=== PATIENT | male | born 1990 | race Hispanic/Latino ===

== ENCOUNTER 2019-03-12 15:19 | Observation (INO) | payer BC ==
[2019-03-12] MEDS ORDERED: PIPER/TAZO/NS 3.375gm 3.375 GM/100 ML BAG ONE (15:36)
[2019-03-12] MEDS ORDERED: NA CHLORIDE 0.9% 1,000 ML ONE ×2 (15:36→17:10)
[2019-03-12 15:48] LABS: Absolute Lymphocytes (CBC) 2.2 K/uL (0.7-4.9); Basophils % 0.2 % (0-1.3); Hematocrit 46.5 % (39.6-49.0); Lymphocytes % 18.3 % (15.3-44.8); MPV 9.5 fL (7.6-11.3); RBC Red Blood Cell Count 5.42 M/uL (4.33-5.43)
[2019-03-12 16:07] LABS: ALT/SGPT 44 U/L (12-78); AST/SGOT 24 U/L (15-37); Albumin 4.5 g/dL (3.4-5.0); Alkaline Phosphatase 74 U/L (45-117); BUN Blood Urea Nitrogen 13 mg/dL (7-18); Bicarbonate 29 mmol/L (21-32); Bilirubin Total 0.6 mg/dL (0.2-1.0); Glucose Level 95 mg/dL (74-106); Potassium 3.7 mmol/L (3.5-5.1); Sodium Level 138 mmol/L (136-145)
--- NOTE | 2019-03-12 16:46 | ER ---
Nurse's Notes [facility] Name: Dieter Lara Age: 28 yrs Sex: Male : 1990 Arrival Date: 03/12/2019 Time: 15:20 Bed 28 Private MD: Diagnosis: Acute appendicitis Presentation: 03/12 15:20 Presenting complaint: Pt sent here for abnormal CT abd scan, positive for appendicitis. aa5 Pt reports mild RLQ pain that began yesterday. Denies pain at this time, denies N/V/D. 15:20 Transition of care: CT department. Onset of symptoms was March 12, 2019. Risk aa5 Assessment: Do you want to hurt yourself or someone else? Patient reports no desire to harm self or others. Initial Sepsis Screen: Does the patient meet any 2 criteria? No. Patient's initial sepsis screen is negative. Does the patient have a suspected source of infection? Yes: Other: Appendicitis. Care prior to arrival: IV initiated. 22 GA, in the left antecubital area. 15:20 Acuity: REMY 3 aa5 15:20 Method Of Arrival: Wheelchair aa5 Historical: - Allergies: 15:30 No Known Allergies; aa5 - PMHx: 15:30 None; aa5 - PSHx: 15:30 R arm; aa5 - Immunization history:: Adult Immunizations up to date. - Social history:: Smoking status: Patient uses tobacco products, 6 cigarettes a day . - Ebola Screening: : No symptoms or risks identified at this time. - Family history:: not pertinent. Screenin:30 Abuse screen: Denies threats or abuse. Nutritional screening: No deficits noted. aa5 Tuberculosis screening: No symptoms or risk factors identified. Fall Risk None identified. Assessment: 15:20 General: Appears comfortable, Behavior is calm, cooperative. Pain: Complains of pain in aa5 right lower quadrant Pain does not radiate. Pain currently is 0 out of 10 on a pain scale. Quality of pain is described as aching, Pain began 1 day ago. Is intermittent. Neuro: Level of Consciousness is awake, alert, obeys commands, Oriented to person, place, time, situation. Cardiovascular: Heart tones S1 S2 present Patient's skin is warm and dry. Rhythm is regular. Respiratory: Airway is patent Respiratory effort is even, unlabored, Respiratory pattern is regular, symmetrical. GI: Abdomen is round non-distended, Bowel sounds present X 4 quads. Abd is soft X 4 quads Abdomen is tender to palpation in right lower quadrant Patient currently denies diarrhea, nausea, vomiting. : No signs and/or symptoms were reported regarding the genitourinary system. EENT: No signs and/or symptoms were reported regarding the EENT system. Derm: Skin is pink, warm \T\ dry. Musculoskeletal: Range of motion: intact in all extremities. 16:20 Reassessment: Patient is alert, oriented x 3, equal unlabored respirations, skin aa5 warm/dry/pink. Patient denies pain at this time. 17:20 Reassessment: Patient is alert, oriented x 3, equal unlabored respirations, skin aa5 warm/dry/pink. Patient denies pain at this time. 17:48 Reassessment: Patient is alert, oriented x 3, equal unlabored respirations, skin aa5 warm/dry/pink. Vital Signs: 15:21 BP 132 / 89; Pulse 81; Resp 18 S; Temp 98.7(O); Pulse Ox 100% on R/A; Weight 94.35 kg aa5 (R); Height 5 ft. 7 in. (170.18 cm) (R); Pain 0/10; 16:20 BP 112 / 85; Pulse 75; Resp 16 S; Pulse Ox 99% on R/A; aa5 17:30 BP 113 / 68; Pulse 72; Resp 18 S; Temp 98.0(TE); Pulse Ox 99% on R/A; Pain 0/10; aa5 15:21 Body Mass Index 32.58 (94.35 kg, 170.18 cm) aa5 ED Course: 15:20 Patient arrived in ED. jonathan 15:20 Oh Mcdaniel MD is Attending Physician. jonathan 15:20 Arm band placed on Patient placed in an exam room, on a stretcher. aa5 15:20 Patient has correct armband on for positive identification. Placed in gown. Bed in low aa5 position. Call light in reach. Side rails up X2. Pulse ox on. NIBP on. 15:26 Ev Dixon, ISMAEL is Primary Nurse. aa5 15:29 Triage completed. aa5 15:40 Initial lab(s) drawn, by me, sent to lab. IV is intact, Changed dressing on left aa5 antecubital. 15:46 No provider procedures requiring assistance completed. aa5 16:45 Teo Luong MD is Hospitalizing Provider. [facility] 17:48 Patient admitted, IV remains in place. aa5 Administered Medications: 15:26 Not Given (Pt denies pain ): morphine 2 mg IVP once; (PAIN>8) RASS on ADMN: Combtv4, aa5 Very Agttd3, Agttd2, Rstlss1, AlertClm0, Drwsy-1, LtSdtn-2, ModSdtn-3, DpSdtn-4, UnArsble-5 x2 15:27 CANCELLED (Pt denies nausea ): Zofran 4 mg IVP once; over 2 minutes aa5 15:41 Drug: NS 0.9% 1000 ml Route: IV; Rate: 1 bolus; Site: left antecubital; aa5 16:41 Follow up: IV Status: Completed infusion; IV Intake: 1000ml aa5 15:41 Drug: Zosyn 3.375 grams Route: IVPB; Infused Over: 60 mins; Site: left antecubital; aa5 16:41 Follow up: Response: No adverse reaction; IV Status: Completed infusion aa5 17:00 Drug: NS 0.9% 1000 ml Route: IV; Rate: 125 ml/hr; Site: left antecubital; aa5 17:48 Follow up: IV Status: Infusion continued upon admission aa5 Intake: 16:41 IV: 1000ml; Total: 1000ml. aa5 Outcome: 16:46 Decision to Hospitalize by Provider. [facility] 17:48 Admitted to OR accompanied by nurse, via wheelchair, with chart. aa5 17:48 Condition: stable 17:48 Instructed on the need for admit, Demonstrated understanding of instructions. 17:50 Patient left the ED. aa5 Signatures: Oh Mcdaniel MD MD cha Calderon, Audri, RN RN aa5 Corrections: (The following items were deleted from the chart) 15:47 15:40 Inserted saline lock: 22 gauge in left antecubital area, using aseptic technique. aa5 Blood collected. aa5
--- NOTE | 2019-03-12 16:46 | EDPHYS ---
Physician Documentation [facility] Name: Dieter Lara Age: 28 yrs Sex: Male : 1990 Arrival Date: 03/12/2019 Time: 15:20 Bed 28 Private MD: ED Physician Oh Mcdaniel HPI: 03/12 16:42 This 28 yrs old Male presents to ER via Wheelchair with complaints of jonathan Appendicitis per CT scan. 16:42 The patient presents with abdominal pain right lower quadrant. Onset: The jonathan symptoms/episode began/occurred yesterday. The symptoms do not radiate. Associated signs and symptoms: none. The symptoms are described as crampy, steady. Modifying factors: The symptoms are alleviated by nothing, the symptoms are aggravated by movement, pressure. Severity of pain: At its worst the pain was mild moderate in the emergency department the pain is unchanged. The patient has not experienced similar symptoms in the past. Historical: - Allergies: 15:30 No Known Allergies; aa5 - PMHx: 15:30 None; aa5 - PSHx: 15:30 R arm; aa5 - Immunization history:: Adult Immunizations up to date. - Social history:: Smoking status: Patient uses tobacco products, 6 cigarettes a day . - Ebola Screening: : No symptoms or risks identified at this time. - Family history:: not pertinent. ROS: 16:42 Constitutional: Negative for fever, chills, and weight loss, Eyes: Negative for injury, jonathan pain, redness, and discharge, ENT: Negative for injury, pain, and discharge, Neck: Negative for injury, pain, and swelling, Cardiovascular: Negative for chest pain, palpitations, and edema, Respiratory: Negative for shortness of breath, cough, wheezing, and pleuritic chest pain, : Negative for injury, bleeding, discharge, and swelling, MS/Extremity: Negative for injury and deformity, Skin: Negative for injury, rash, and discoloration, Neuro: Negative for headache, weakness, numbness, tingling, and seizure, Psych: Negative for depression, anxiety, suicide ideation, homicidal ideation, and hallucinations, Allergy/Immunology: Negative for hives, rash, and allergies, Endocrine: Negative for neck swelling, polydipsia, polyuria, polyphagia, and marked weight changes, Hematologic/Lymphatic: Negative for swollen nodes, abnormal bleeding, and unusual bruising. 16:42 Abdomen/GI: Positive for abdominal pain, abdominal cramps, of the right lower quadrant. Exam: 16:42 Constitutional: This is a well developed, well nourished patient who is awake, alert, jonathan and in no acute distress. Head/Face: Normocephalic, atraumatic. Eyes: Pupils equal round and reactive to light, extra-ocular motions intact. Lids and lashes normal. Conjunctiva and sclera are non-icteric and not injected. Cornea within normal limits. Periorbital areas with no swelling, redness, or edema. ENT: Nares patent. No nasal discharge, no septal abnormalities noted. Tympanic membranes are normal and external auditory canals are clear. Oropharynx with no redness, swelling, or masses, exudates, or evidence of obstruction, uvula midline. Mucous membranes moist. Neck: Trachea midline, no thyromegaly or masses palpated, and no cervical lymphadenopathy. Supple, full range of motion without nuchal rigidity, or vertebral point tenderness. No Meningismus. Chest/axilla: Normal chest wall appearance and motion. Nontender with no deformity. No lesions are appreciated. Cardiovascular: Regular rate and rhythm with a normal S1 and S2. No gallops, murmurs, or rubs. Normal PMI, no JVD. No pulse deficits. Respiratory: Lungs have equal breath sounds bilaterally, clear to auscultation and percussion. No rales, rhonchi or wheezes noted. No increased work of breathing, no retractions or nasal flaring. Back: No spinal tenderness. No costovertebral tenderness. Full range of motion. Male : Normal genitalia with no discharge or lesions. Skin: Warm, dry with normal turgor. Normal color with no rashes, no lesions, and no evidence of cellulitis. MS/ Extremity: Pulses equal, no cyanosis. Neurovascular intact. Full, normal range of motion. Neuro: Awake and alert, GCS 15, oriented to person, place, time, and situation. Cranial nerves II-XII grossly intact. Motor strength 5/5 in all extremities. Sensory grossly intact. Cerebellar exam normal. Normal gait. Psych: Awake, alert, with orientation to person, place and time. Behavior, mood, and affect are within normal limits. 16:42 Abdomen/GI: Inspection: abdomen appears normal, Bowel sounds: normal, Palpation: moderate abdominal tenderness, in the right lower quadrant, Liver: no appreciated palpable abnormalities, Hernia: not appreciated. Vital Signs: 15:21 BP 132 / 89; Pulse 81; Resp 18 S; Temp 98.7(O); Pulse Ox 100% on R/A; Weight 94.35 kg aa5 (R); Height 5 ft. 7 in. (170.18 cm) (R); Pain 0/10; 16:20 BP 112 / 85; Pulse 75; Resp 16 S; Pulse Ox 99% on R/A; aa5 17:30 BP 113 / 68; Pulse 72; Resp 18 S; Temp 98.0(TE); Pulse Ox 99% on R/A; Pain 0/10; aa5 15:21 Body Mass Index 32.58 (94.35 kg, 170.18 cm) aa5 MDM: 15:[address] [facility] 16:44 Data reviewed: vital signs, nurses notes, lab test result(s), radiologic studies, CT [facility] scan. 03/12 15:22 Order name: CBC with Diff; Complete Time: 16:28 [facility] 03/12 15:22 Order name: Comprehensive Metabolic Panel; Complete Time: 16:28 [facility] 03/12 16:53 Order name: Urine Dipstick--Ancillary (enter results); Complete Time: 17:09 03/12 15:22 Order name: Urine Dipstick-Ancillary (obtain specimen); Complete Time: 16:36 [facility] 03/12 16:44 Order name: EKG; Complete Time: 16:45 [facility] 03/12 16:44 Order name: EKG - Nurse/Tech; Complete Time: 17:15 [facility] Administered Medications: 15:26 Not Given (Pt denies pain ): morphine 2 mg IVP once; (PAIN>8) RASS on ADMN: Combtv4, aa5 Very Agttd3, Agttd2, Rstlss1, AlertClm0, Drwsy-1, LtSdtn-2, ModSdtn-3, DpSdtn-4, UnArsble-5 x2 15:27 CANCELLED (Pt denies nausea ): Zofran 4 mg IVP once; over 2 minutes aa5 15:41 Drug: NS 0.9% 1000 ml Route: IV; Rate: 1 bolus; Site: left antecubital; [facility] 16:41 Follow up: IV Status: Completed infusion; IV Intake: 1000ml [facility] 15:41 Drug: Zosyn 3.375 grams Route: IVPB; Infused Over: 60 mins; Site: left antecubital; 5 16:41 Follow up: Response: No adverse reaction; IV Status: Completed infusion aa5 17:00 Drug: NS 0.9% 1000 ml Route: IV; Rate: 125 ml/hr; Site: left antecubital; 5 17:48 Follow up: IV Status: Infusion continued upon admission aa5 Disposition: 03/12/19 16:46 Hospitalization ordered by Teo Luong for Observation. Preliminary diagnosis is Acute appendicitis. - Bed requested for Telemetry/MedSurg (Inpatient). - Status is Observation. aa5 - Condition is Stable. - Problem is new. - Symptoms have improved. UTI on Admission? No Signatures: Dispatcher [employer] EDNichelle Saucedo RN RN kl Anderson, Corey, MD MD cha Calderon, Audri, RN RN 5 Rayna Warren Corrections: (The following items were deleted from the chart) 15:27 15:22 Zofran 4 mg IVP once; over 2 minutes ordered. jonathan [facility] 17:13 16:46 Hospitalization Ordered by Teo Luong MD for Observation. Preliminary diagnosis is Acute appendicitis. Bed requested for Operating Room. Status is Observation. Condition is Stable. Problem is new. Symptoms have improved. UTI on Admission? No. jonathan 17:20 17:13 03/12/2019 16:46 Hospitalization Ordered by Teo Luong MD for Observation. Preliminary diagnosis is Acute appendicitis. Bed requested for Operating Room. Status is Observation. Condition is Stable. Problem is new. Symptoms have improved. UTI on Admission? No. kl 17:50 17:20 03/12/2019 16:46 Hospitalization Ordered by Teo Luong MD for Observation. aa Preliminary diagnosis is Acute appendicitis. Bed requested for Telemetry/MedSurg (Inpatient). Status is Observation. Condition is Stable. Problem is new. Symptoms have improved. UTI on Admission? No. eb
[2019-03-12 17:05] LABS: Urine Blood NEGATIVE (NEG); Urine Glucose NEGATIVE (NEG); Urine Protein NEGATIVE (NEG); Urine Specific Gravity 1.015 (1.005-1.030)
[2019-03-12] MEDS ORDERED: BUPIVACAINE 0.5% PF 10 ML VIAL ONE (17:10)
[2019-03-12] MEDS ORDERED: SUCCINYLCHOLINE 20 MG/ML (10 ML) IV ONE (18:13)
[2019-03-12] MEDS ORDERED: propofoL 200 MG/20 ML VIAL IV ONE (18:17)
[2019-03-12] MEDS ORDERED: ROCURONIUM 50 MG/5 ML VIAL IV ONE (18:17)
[2019-03-12] MEDS ORDERED: FENTANYL CITR 250 MCG/5 ML ONE (18:17)
[2019-03-12] MEDS ORDERED: MIDAZOLAM HCL 2 MG/2 ML INJ ONE (18:17)
[2019-03-12] MEDS ORDERED: NEOSTIGMINE 1 MG/ML -5 ML ONE (19:28)
[2019-03-12] MEDS ORDERED: KETOROLAC 30 MG/ML INJ ONE (19:28)
[2019-03-12] MEDS ORDERED: GLYCOPYRROLATE 0.2 MG/ML SYR ONE (19:28)
[2019-03-12] MEDS ORDERED: ONDANSETRON 4 MG/2 ML VIAL ONE (19:29)
[2019-03-12] MEDS ORDERED: ONDANSETRON 4 MG/2 ML VIAL IV PRN (19:30)
[2019-03-12] MEDS ORDERED: MORPHINE 4 MG/ML SYR IV PRN (19:30)
[2019-03-12] MEDS ORDERED: D5 0.45 NS 1,000 ML IV SCH ×2 (19:30→20:49)
[2019-03-12] MEDS ORDERED: ACETAMINOPHEN 500 MG TAB PO PRN (19:30)
[2019-03-12] MEDS ORDERED: Ringers Lactate 1,000 ML IV ONE (19:34)
[2019-03-12] MEDS ORDERED: HYDROCODONE/APAP 7.5/325 MG TAB PO PRN (20:49)
[2019-03-12] MEDS ORDERED: NACHLORIDE 0.45% 1,000 ML IV SCH (21:00)
[2019-03-12] MEDS: FAMOTIDINE 20 MG/2 ML VIAL IV SCH (21:39)
[2019-03-12 22:48] VITALS: BMI 32.5
[2019-03-12] MEDS ORDERED: PIPER/TAZO/NS 3.375gm 6.750 GM/200 ML BAG ONE (23:22)
[2019-03-12] MEDS: PIPER/TAZO/NS 3.375gm 3.375 GM/100 ML BAG IVPB SCH (23:48)
--- NOTE | 2019-03-13 03:10 | HP ---
Date of Admission: 03/12/2019 Diagnosis: Acute appendicitis. History Of Present Illness: This is the case of a 28-year-old patient, who comes to the primary doct or complaining of right lower quadrant tenderness started since yesterday. Associated with nausea. The pain is getting worse. He came to the doctor's office, sent to the ER and ER just called us that the patient has acute appendicitis. He denies any trauma. He denies any dysuria, hematuria, hemato chezia, or melena. Denies any recent travel out of the country. Denies any family member sick at [facility]. Past Medical History: None. Past Surgical History: Right arm surgery. Allergies: NONE. Social History: He does not smoke. He does not drink alcohol. Family History: Noncontributory. Review of Systems: Ten points otherwise unremarkable. Physical Examination: General: Patient is awake and alert. HEENT: Pupils are equal and reactive, anicteric. Neck: Supple. Chest: Clear. Abdomen: Right lower quadrant tenderness with Rovsing sign and psoas signs positive. Rectal: Deferred. Genitalia: Deferred. Extremities: Good capillary refill. Neurologic: Cranial nerves 2 through 12 grossly within normal limits. Laboratory Data: Blood work reviewed. CAT scan shows acute appendicitis. Assessment: Acute appendicitis. Procedure: Laparoscopic, possible open appendectomy with benefits, alternatives, and risks, includin g, but not limited to infection, bleeding, damage to adjacent structures, anesthesia complications, n egative appendix, GA, and even . He also understands this may not relieve any symptoms. He chantal ht need more than 1 surgical intervention. He understood, signed the consent. The patient was emerg ently brought to the OR. ZULEMA/EMILY Voice ID: [id number]
--- NOTE | 2019-03-13 03:13 | OP ---
Date of Procedure: 03/12/2019 Surgeon: Teo Luong MD Preoperative Diagnoses: Acute appendicitis, acute abdominal pain. Postoperative Diagnoses: Acute appendicitis, acute abdominal pain. Procedure: Emergent laparoscopic appendectomy. Anesthesia: General plus local. Findings: Acute appendicitis. Indications: This is the case of a 28-year-old patient with above diagnosis. Fully explained the be nefits, alternatives, and risks of laparoscopic, possible open appendectomy, which include, but not l imited to infection, bleeding, damage to adjacent structures, anesthesia complication, recurrence, ne gative appendix, MO, and even . He also understands this may not relieve any symptoms. He migh t need more than 1 surgical intervention. He understood, signed the consent. Description Of Procedure: Patient was brought to the operating room, placed in supine position. Ane sthesia was done without complication. Time-out was called. Abdomen was prepped and draped in steri le fashion. Marcaine 0.5% was injected for local anesthetic, followed by sharp incision of the skin in the infraumbilical region. Incision was carried down to fascia, which was opened under direct vis ion. Peritoneum was encountered, opened under direct vision. Vicryl #1 placed inside the fascia. H asson trocar was carefully introduced. Pneumoperitoneum was obtained. I placed 2 more trocars, 5 mm each one of them, in the suprapubic and left lower quadrant under direct visualization. Immediately , we noticed the patient to have a partially retrocecal appendix, inflamed. The base of the appendix seems to be spared from the inflammation. So, we created a window in the base of the appendix, rodriguez sected that with an Endo TRINITY 45 mm 3.5, and the mesoappendix with an Endo TRINITY 45 mm 2.5. Further hem ostasis was obtained with the help of hemoclips. Appendix was removed from abdominal cavity using an EndoCatch through the umbilical incision. Irrigation was done. No bleeding, no bowel leak after ir rigation and suction. At that moment, I proceeded to remove the trocars under direct vision. Deflat ed pneumoperitoneum. Closed the fascia with #1 Vicryl, irrigated subcutaneous tissue, closed that wi th 3-0 chromic and skin with andre. Sponge count and instrument counts were correct. Patient tole rated the procedure well. Patient was sent to recovery in stable condition. HM/MODL Voice ID: [id number] Report ID: [id number]
[2019-03-13] MEDS: PIPER/TAZO/NS 3.375gm 3.375 GM/100 ML BAG IVPB SCH (05:31)
[2019-03-13 06:33] LABS: Absolute Lymphocytes (CBC) 1.5 K/uL (0.7-4.9); Basophils % 0.2 % (0-1.3); Hematocrit 40.6 % (39.6-49.0); Lymphocytes % 15.1 % (15.3-44.8); MPV 9.4 fL (7.6-11.3); RBC Red Blood Cell Count 4.64 M/uL (4.33-5.43)
[2019-03-13 07:08] LABS: Albumin 3.4 g/dL (3.4-5.0); Bilirubin Direct 0.1 mg/dL (0-0.2); Bilirubin Total 0.7 mg/dL (0.2-1.0); Potassium 3.6 mmol/L (3.5-5.1); Protein, Total 6.2 g/dL (6.4-8.2)
--- NOTE | 2019-03-13 07:42 | P.DS ---
Admission Date: 03/12/19 Discharge Date: 03/13/19 Disposition: ROUTINE DISCHARGE Discharge Condition: GOOD Vital Signs/Physical Exam: Temp Pulse Resp BP Pulse Ox 98.8 F 98 H 16 114/59 L 98 03/13/19 04:00 03/13/19 04:00 03/13/19 04:00 03/13/19 04:00 03/13/19 04:00 General: Alert, In no apparent distress, Oriented x3, Cooperative HEENT: PERRLA, EOMI Neck: Supple Respiratory: Normal air movement Cardiovascular: Normal pulses Gastrointestinal: Soft and benign Musculoskeletal: No tenderness, No warmth Integumentary: No rashes Neurological: Normal speech Laboratory Data at Discharge: WBC 9.8 K/uL (4.3-10.9) D 03/13/19 05:49 Hgb 13.5 g/dL (13.6-17.9) L 03/13/19 05:49 Hct 40.6 % (39.6-49.0) 03/13/19 05:49 Plt Count 151 K/uL (152-406) L 03/13/19 05:49 Sodium 140 mmol/L (136-145) 03/13/19 05:49 Potassium 3.6 mmol/L (3.5-5.1) 03/13/19 05:49 BUN 10 mg/dL (7-18) 03/13/19 05:49 Creatinine 1.03 mg/dL (0.55-1.3) 03/13/19 05:49 Glucose 99 mg/dL (74-106) 03/13/19 05:49 Total Bilirubin 0.7 mg/dL (0.2-1.0) 03/13/19 05:49 AST 18 U/L (15-37) 03/13/19 05:49 ALT 34 U/L (12-78) 03/13/19 05:49 Alkaline Phosphatase 56 U/L (45-117) 03/13/19 05:49 Lipase 1727 U/L (73-393) H 03/13/19 05:49 Home Medications: Amox/Clavulanate [Augmentin 875-125 Tab] 1 each PO BID #12 tab 03/13/19 Codeine/APAP [Tylenol W/Codeine #3 tab] 1 tab PO Q4HP PRN #30 tab 03/13/19 New Medications: Amox/Clavulanate [Augmentin 875-125 Tab] 1 each PO BID #12 tab Codeine/APAP [Tylenol W/Codeine #3 tab] 1 tab PO Q4HP PRN #30 tab PRN Reason: Pain Patient Discharge Instructions: Keep area dry for 24h then may shower. Diet: AHA Activity: No lifting more than 10 lbs Followup: eTo Luong MD [ACTIVE - CAN ADMIT] - 1 Week
[2019-03-13] MEDS ORDERED: INFLUENZA VACCINE (for 3y+) 0.5 ML DOSE IMVAC ONE (08:00)
[2019-03-13] MEDS: FAMOTIDINE 20 MG/2 ML VIAL IV SCH (08:21)
[2019-03-13 08:42] VITALS: BP 105/60; TEMP 97.5
[2019-03-13] MEDS ORDERED: METHYLPREDNISOLONE 125 MG INJ ONE (09:18)
[2019-03-13] MEDS ORDERED: IPRATROPIUM BROM 0.5MG/2.5ML ONE (09:18)
[2019-03-13] MEDS ORDERED: LEVALBUTEROL 1.25 MG/3 ML NEB ONE (09:19)
[2019-03-13] MEDS ORDERED: PIPER/TAZO/NS 3.375gm 3.375 GM/100 ML BAG ONE (09:19)
[2019-03-13] MEDS ORDERED: NA CHLORIDE 0.9% 1,000 ML ONE (09:19)
[2019-03-13 09:59] VITALS: O2SAT 97
--- NOTE | 2019-03-13 12:21 | EKG ---
Test Date: 2019-03-12 Test Time: 17:10:34 [employer]: NHAN MEASUREMENT RESULTS: Intervals: Rate: 72 CO: 106 QRSD: 98 QT: 380 QTc: 416 [place]: P: 37 CO: 106 QRS: -4 T: 24 INTERPRETIVE STATEMENTS: Sinus rhythm with short CO Otherwise normal ECG No previous ECG available for comparison Electronically Signed On 03-13-19 12:20:39 RISK TECH by Dutch Edwards
== END 2019-03-13 09:12 | disposition home or self-care (01) ==
LOC: ER 15:19 → ERHOLD 16:47 → 2ND 19:41
PROVIDERS: ADMIT Surgery; ATTEND Surgery
PROC: 0DTJ4ZZ Resection of Appendix, Percutaneous Endoscopic Approach (ICD-10-PCS; principal; 2019-03-12 17:00)
DX: K35.80 Unspecified acute appendicitis (principal)
CPT/HCPCS: 96365; 96361; 93005; 85025 ×2; 80048; 36415; 80076; 88304; 81003; 83690; 80053; 99285; 44970; J2704; J0330; J2250; J3010; J2543 ×3; J2710; J7799; J7120; J7030 ×3; J2930; J2405; G0378 ×2